=== PATIENT | female | born 1960 | race Caucasian/White ===

== ENCOUNTER 2019-11-17 11:00 | Emergency (ER) | payer BC, SELFPAY ==
[2019-11-17 11:40] VITALS: BP 110/73; PULSE 85; RESP 18; TEMP 37.1; O2SAT 99
--- NOTE | 2019-11-17 11:44 | ED.GENADULT ---
HPI - General Adult General Chief complaint: Upper Respiratory Infection Stated complaint: congestion/pain on right side/pressure/drainage Time Seen by Provider: 11/17/19 11:46 Source: patient and family Mode of arrival: ambulatory Limitations: no limitations History of Present Illness HPI narrative: This is a 59 years old female presented office for evaluation of sinus pain for 2 weeks. Symptoms getting worse for the last few day with right-sided facial pain and drainage. She also report dry cough. Denies wheezing. Related Data Home Medications Medication Instructions Recorded Confirmed atorvastatin 40 mg PO HS 11/17/19 11/17/19 [id number]-[id number] 1 cap PO Q8H PRN 11/17/19 11/17/19 [Fioricet] denosumab [Prolia] 60 mg SUBCUT [id number] 11/17/19 11/17/19 erenumab-aooe [Aimovig 140 mg SUBCUT ONCE 11/17/19 11/17/19 Autoinjector] escitalopram oxalate [Lexapro] 20 mg PO DAILY 11/17/19 11/17/19 fexofenadine [Lea Allergy] 60 mg PO Q12H 11/17/19 11/17/19 fluticasone propionate [Flonase 1 spray INTRANASAL Q12H 11/17/19 11/17/19 Allergy Relief] frovatriptan 2.5 mg PO ONCE 11/17/19 11/17/19 levalbuterol HCl 1.25 mg INHALATION Q4H 11/17/19 11/17/19 levetiracetam [Keppra] 750 mg PO BID 11/17/19 11/17/19 mometasone-formoterol [Dulera] 2 puff INHALATION Q12H 11/17/19 11/17/19 montelukast [Singulair] 10 mg PO QPM 11/17/19 11/17/19 nortriptyline 25 mg PO HS 11/17/19 11/17/19 umeclidinium [Incruse Ellipta] 1 inh INHALATION DAILY 11/17/19 11/17/19 verapamil 120 mg PO DAILY 11/17/19 11/17/19 Allergies Allergy/AdvReac Type Severity Reaction Status Date / Time meperidine Allergy Mild Unknown Verified 11/17/19 11:36 Sulfa (Sulfonamide Allergy Mild Unknown Verified 11/17/19 11:36 Antibiotics) albuterol Allergy Unknown Unknown Verified 11/17/19 11:36 NSAIDS (Non-Steroidal Allergy Unknown Unknown Verified 11/17/19 11:36 Anti-Inflamma cetirizine Allergy Unknown Verified 11/17/19 11:54 latex Allergy Unknown Verified 11/17/19 11:53 Review of Systems Review of Systems: Narrative: CONSTITUTIONAL: Reports low grade fever EYES: Denies visual change ENT:Reports sinus congestion, ears pain CARDIOVASCULAR: Denies chest pain RESPIRATORY: Denies dyspnea, wheezing. Reports cough GASTROINTESTINAL: Denies abdominal pain, nausea, vomiting GENITOURINARY: Denies urinary symptoms SKIN: Denies rash MUSCULOSKELETAL: Denies acute back pain, joint pain, or myalgia. NEUROLOGIC: Denies numbness, or focal weakness. [facility] Past Medical History Medical History Age related osteoporosis Asthma Depression Eczema HLD (hyperlipidemia) Surgical History Surgical History Hx of hysterectomy Social History Social History (Updated 11/17/19 @ 11:53 by JAN Mai) Smoking status: Never smoker Comments At time of signature, I agree with nursing past medical, surgical, social and family history. There is no relevant family history pertinent to the presenting complaint. Exam Narrative: Exam Narrative: GENERAL: This is a well-nourished, well-developed patient, in no apparent distress. EYES: Sclera clear/white. Vision is grossly intact. EARS: External ears normal, auditory canals clear and without drainage, TMs normal without perforation. Hearing grossly intact. NOSE: External nose normal with no obvious nasal discharge, nares without redness, no rhinorrhea. Maxillary tenderness noted THROAT: Mucous membranes moist, posterior pharynx clear. NECK: Neck supple, non-tender without lymphadenopathy, masses or thyromegaly. CARDIOVASCULAR: Regular rate and rhythm without murmurs, gallops, or rubs. RESPIRATORY: Clear to auscultation. Breath sounds equal bilaterally. No wheezes, rales, or rhonchi. GASTROINTESTINAL: Abdomen soft, non-tender, nondistended. Bowel sounds are active. No hepato-splenomegaly, or palpable masses. N
== END 2019-11-17 12:00 | disposition home or self-care (01) ==
PROVIDERS: Emergency Provider Nurse Practitioner
DX: J06.9 Acute upper respiratory infection, unspecified (principal); R05 Cough; J45.909 Unspecified asthma, uncomplicated; F32.9 Major depressive disorder, single episode, unspecified; E78.5 Hyperlipidemia, unspecified; M81.0 Age-related osteoporosis without current pathological fracture; F41.9 Anxiety disorder, unspecified
CPT/HCPCS: 99203; G0463

== ENCOUNTER 2023-09-20 11:49 | Emergency (ER) | payer BC, SELFPAY ==
--- NOTE | ~2023-09-20 | XR_ITS ---
EXAMINATION: XR chest 2V DATE: 09/20/2023 13:33 INDICATION: Cough and wheezing post COVID TECHNIQUE: PA and lateral views of the chest were obtained. COMPARISON: None FINDINGS: Mild linear discoid atelectasis at the bilateral costophrenic angles in the right middle lobe and nena gula. No other airspace opacities, pulmonary edema, pleural effusion or pneumothorax. The cardiomedia stinal silhouette is normal. Mild thoracic spondylosis. IMPRESSION: 1. Mild discoid atelectasis at the lingula and right middle lobe. No other acute cardiopulmonary dise ase. Reviewed, dictated and finalized at location A. [facility] IMPRESSION: 1. Mild discoid atelectasis at the lingula and right middle lobe. No other acut e cardiopulmonary disease.
--- NOTE | ~2023-09-20 | XR_ITS ---
XR ankle LT min 3V 09/20/2023 13:33 INDICATION: Status post fall from curb PROCEDURE: 4 views left ankle COMPARISON: No prior studies for comparison. FINDINGS: Fracture, dislocation or subluxation is not identified. The soft tissues appear within norm al limits. No foreign bodies are identified. IMPRESSION: 1: NO ACUTE BONE OR JOINT ABNORMALITY IDENTIFIED. Reviewed, dictated and finalized at location B. [facility]
[2023-09-20 11:57] VITALS: BP 119/72; PULSE 80; RESP 18; TEMP 36.4; O2SAT 100
--- NOTE | 2023-09-20 13:15 | ED.URI ---
HPI - URI/Sore Throat General Chief Complaint: Upper Respiratory Infection Stated Complaint: Chest Congestion/Cough/Left Ankle Pain Time Seen by Provider: 09/20/23 13:15 Source: patient, RN notes reviewed and old records reviewed Mode of arrival: ambulatory Limitations: no limitations History of Present Illness HPI Narrative: 62-year-old female presents to [facility] with complaints of left lateral ankle pain since the the August when patient reports she was walking her dog and stepped off curb. Patient reports that she was diagnosed with COVID on the 11 of September and has lingering cough and chest congestion. and chest feels tight does have inhaler at home.Patient reports that she has adrenal insufficiency and is concerned for pneumonia has productive yellow green tinged phlegm, no tachypnea noted, able to speak in full sentences. MD elicited complaint: cough and other (chest congestion and left ankle pain) Pertinent past history: immunosuppression and other (recent covid) Onset (ago): day(s) (8-9 days) Pain scale (0-10): 7 Able to tolerate fluids by mouth: Yes Treatments prior to arrival: other (inhalers Mucinex) Related Data Home Medications Medication Instructions Recorded Confirmed atorvastatin 40 mg tablet 40 mg PO HS 11/17/19 11/17/19 [id number]-[id number] 1 cap PO Q8H PRN pain 11/17/19 11/17/19 50 mg-300 mg-40 mg capsule (Fioricet) denosumab 60 mg/mL subcutaneous 60 mg subcut [id number] 11/17/19 11/17/19 syringe (Prolia) erenumab-aooe 140 mg/mL 140 mg subcut ONCE 11/17/19 11/17/19 subcutaneous auto-injector (Aimovig Autoinjector) escitalopram oxalate 20 mg tablet 20 mg PO DAILY 11/17/19 11/17/19 (Lexapro) fexofenadine 60 mg tablet (Lea 60 mg PO Q12H 11/17/19 11/17/19 Allergy) fluticasone propionate 50 1 spray intranasal Q12H 11/17/19 11/17/19 mcg/actuation nasal spray,suspension (Flonase Allergy Relief) frovatriptan 2.5 mg tablet 2.5 mg PO ONCE 11/17/19 11/17/19 levalbuterol HCl 1.25 mg/0.5 mL 1.25 mg inhalation Q4H 11/17/19 11/17/19 solution for nebulization levetiracetam 750 mg tablet 750 mg PO BID 11/17/19 11/17/19 (Keppra) mometasone-formoterol HFA 200 2 puff inhalation Q12H 11/17/19 11/17/19 mcg-5 mcg/actuation aerosol inhaler (Dulera) montelukast 10 mg tablet 10 mg PO QPM 11/17/19 11/17/19 (Singulair) nortriptyline 25 mg capsule 25 mg PO HS 11/17/19 11/17/19 umeclidinium 62.5 mcg/actuation 1 inh inhalation DAILY 11/17/19 11/17/19 blister powder for inhalation (Incruse Ellipta) verapamil 120 mg tablet,extended 120 mg PO DAILY 11/17/19 11/17/19 release Centrum Silver Ultra Women's 09/20/23 Daily Probiotic 09/20/23 Linzess 09/20/23 Vitamin B12 09/20/23 Vitamin D 09/20/23 clobetasol 0.05 % scalp solution topical 09/20/23 galcanezumab-gnlm 120 mg/mL mg subcut 09/20/23 subcutaneous pen injector (Emgality Pen) glycopyrrolate 1 mg tablet mg 09/20/23 hydrocortisone 20 mg tablet mg 09/20/23 hydroxyzine HCl 50 mg tablet mg 09/20/23 levetiracetam 750 mg tablet mg PO 09/20/23 mometasone-formoterol HFA 200 inhalation 09/20/23 mcg-5 mcg/actuation aerosol inhaler (Dulera) tiotropium bromide 2.5 inhalation 09/20/23 mcg/actuation mist for inhalation (Spiriva Respimat) triamcinolone acetonide 0.025 % applic topical 09/20/23 topical cream Allergies Allergy/AdvReac Type Severity Reaction Status Date / Time meperidine Allergy Mild Unknown Verified 09/20/23 12:10 Sulfa (Sulfonamide Allergy Mild Unknown Verified 09/20/23 12:10 Antibiotics) albuterol Allergy Unknown Unknown Verified 09/20/23 12:10 NSAIDS (Non-Steroidal Allergy Unknown Unknown Verified 09/20/23 12:10 Anti-Inflamma cetirizine Allergy Unknown Verified 09/20/23 12:10 latex Allergy Unknown Verified 09/20/23 12:10 Review of Systems Review of Systems: CONSTITUTIONAL: Denies fever, chills, or sweats. EYES: Denies visual changes, red
== END 2023-09-20 14:08 | disposition home or self-care (01) ==
PROVIDERS: Emergency Provider Registered Nurse
DX: J40 Bronchitis, not specified as acute or chronic (principal); S93.402A Sprain of unspecified ligament of left ankle, initial encounter; S96.912A Strain of unspecified muscle and tendon at ankle and foot level, left foot, initial encounter; E78.5 Hyperlipidemia, unspecified; Z79.899 Other long term (current) drug therapy; X50.0XXA Overexertion from strenuous movement or load, initial encounter; Y93.K1 Activity, walking an animal
CPT/HCPCS: 71046; 73610; 99204; G0463